=== PATIENT | female | born 1965 | race Caucasian/White ===

== ENCOUNTER 2021-04-08 16:32 | Outpatient (CLI) | payer OTHER, SELFPAY ==
--- NOTE | ~2021-04-08 | DEXA_ITS ---
Bone Density Report Name: Cammie Hamm Age: 56 Sex: Female Ethnicity: White Date of : 1965 Indication: osteopenia; height loss; hysterectomy; Referring Provider: Daquan, Steffany Study: Bone densitometry was performed. Exam Date: April 08, 2021 Accession number: [id number] Bone Density: Region BMD T-score Z-score Classification AP Spine (L1-L4) 0.895 -1.4 -0.1 Osteopenia Femoral Neck (Left) 0.709 -1.3 -0.1 Osteopenia Total Hip (Left) 0.863 -0.6 0.2 Normal Total Hip Bilateral Avg 0.881 -0.5 0.4 Normal Femoral Neck (Right) 0.770 -0.7 0.5 Normal Total Hip (Right) 0.898 -0.4 0.5 Normal World Health Organization criteria for BMD impression classify patients as: Normal (T-score at or above -1.0), Osteopenia (T-score between -1.0 and -2.5), or Osteoporosis (T-score at or below -2.5). 10-year Fracture Risk(1): Major Osteoporotic Fracture 6.7% Hip Fracture 0.4% Reported Risk Factors: [place] (), Neck BMD=0.709, BMI=23.7 (1) FRAX(R) Version 3.08. Fracture probability calculated for an untreated patient. Fracture probability may be lower if the patient has received treatment. Previous Exams: Region Exam Age BMD T-score BMD Change BMD Change Date g/cm2 vs Baseline vs Previous AP Spine(L1-L4) 04/08/2021 56 0.895 -1.4 -0.031(-3.4%)# -0.015(-1.6%)# 02/15/2018 52 0.910 -1.2 -0.016(-1.8%)# 0.021(2.3%)# 06/01/2013 48 0.889 -1.4 -0.037(-4.0%)# -0.037(-4.0%)02/19/2011 45 0.926 -1.1 Total Hip(Left) 04/08/2021 56 0.863 -0.6 -0.012(-1.4%)# -0.010(-1.2%)# 02/15/2018 52 0.874 -0.6 -0.002(-0.2%)# -0.002(-0.3%)# 06/01/2013 48 0.876 -0.5 0.001(0.1%)# 0.001(0.1%)# 02/19/2011 45 0.875 -0.5 Total Hip(Right) 04/08/2021 56 0.898 -0.4 0.027(3.1%)# 0.027(3.1%)# 02/15/2018 52 0.871 -0.6 -0.001(-0.1%)# -0.027(-3.0%)# 06/01/2013 48 0.897 -0.4 0.026(3.0%)# 0.026(3.0%)02/19/2011 45 0.871 -0.6 *Denotes significance at 95% confidence level, LSC for AP Spine = 0.022 g/cm2, LSC for Total Hip = 0.027 g/cm2 Clinical Information Provided by Patient: Has used the following medications: Vitamin D Has the following medical conditions: Hysterectomy Patient maximum height was 67 Drinks caffeinated beverages Onset of menses at age 12 Number of children 3 Impression: The patient has low bone mass, based on the Total Spine T-score. The patient has an estimated ten-yea
--- NOTE | ~2021-04-08 | MM_ITS ---
EXAMINATION: MM screening deena BI w sally HISTORY: Screening mammogram TECHNIQUE: Craniocaudal and mediolateral oblique 3-D tomosynthesis images were obtained and synthetic 2-D images were generated. CAD analysis was submitted and interpreted. COMPARISON: No prior mammogram is available for comparison at this institution. BREAST PARENCHYMAL COMPOSITION: The breasts are heterogeneously dense, which may obscure small masses . FINDINGS: Interval asymmetric densities are noted in the right breast. Diagnostic right mammogram and right breast ultrasound examination are recommended. There is no evidence of suspicious mass, calcification, or architectural distortion to suggest malign blue in the left breast. IMPRESSION: 1. Interval asymmetric densities in the right breast 2. Diagnostic right mammogram and right breast ultrasound examination are recommended BI-RADS Category 0: Incomplete: Needs additional imaging evaluation. Reviewed, dictated and finalized at location A. IMPRESSION: 1. Interval asymmetric densities in the right breast 2. Diagnostic right mammogram and right breast ultrasound examination are recom mended BI-RADS Category 0: Incomplete: Needs additional imaging evaluation.
== END 2021-04-08 16:33 | disposition home or self-care (01) ==
LOC: ANHIMG 16:36
PROVIDERS: PCP Family Medicine; Visit Provider Nurse Practitioner
DX: Z12.31 Encounter for screening mammogram for malignant neoplasm of breast (principal); Z78.0 Asymptomatic menopausal state; R92.8 Other abnormal and inconclusive findings on diagnostic imaging of breast; M85.89 Other specified disorders of bone density and structure, multiple sites
CPT/HCPCS: 77063; 77067; 77080

== ENCOUNTER 2021-07-03 11:16 | Outpatient (CLI) | payer OTHER, SELFPAY ==
--- NOTE | ~2021-07-03 | MMUS_ITS ---
EXAMINATION: MM diagnostic deena RT w sally, US breast RT complete HISTORY: Follow-up right breast asymmetry TECHNIQUE: Additional 3-D tomosynthesis images of the right breast were performed and synthetic 2-D i mages were generated. CAD analysis was submitted and interpreted. High resolution complete right meir st ultrasound was performed. COMPARISON: 06/01/2013 BREAST PARENCHYMAL COMPOSITION: Breast composed of scattered areas of fibroglandular density. FINDINGS: MAMMOGRAPHIC FINDINGS: There are no suspicious masses, calcifications or architectural distortion in the right breast to sug gest malignancy. There are focal asymmetry centrally in the right breast on CC view which are less ap parent with spot compression views. ULTRASOUND: Complete right breast ultrasound including all 4 quadrants and retroareolar region: There are multipl e cysts of the right breast at 12:00, 7:00 and a cluster of cysts at 10:00, 1 cm from the nipple. No suspicious masses to suggest malignancy. IMPRESSION: 1. No evidence for malignancy in the right breast. Benign findings. 2. Routine yearly screening mammogram and regular clinical breast examination are recommended. BI-RADS Category 2: Benign finding(s). Reviewed, dictated and finalized at location A. [facility] IMPRESSION: 1. No evidence for malignancy in the right breast. Benign findings. 2. Routine yearly screening mammogram and regular clinical breast examination a re recommended. BI-RADS Category 2: Benign finding(s).
== END 2021-07-03 11:17 | disposition home or self-care (01) ==
LOC: ANHIMG 11:18
PROVIDERS: PCP Family Medicine; Visit Provider Obstetrics & Gynecology Gynecology
DX: R92.8 Other abnormal and inconclusive findings on diagnostic imaging of breast (principal)
CPT/HCPCS: 76641; 77061; 77065; G0279

== ENCOUNTER 2023-07-26 03:15 | Day surgery (SDC) | payer BC, SELFPAY ==
[2023-06-29 14:02] VITALS: BMI 24.3
--- NOTE | 2023-07-23 08:37 | SUR.PREOP ---
Patient called regarding upcoming procedure. Reviewed preop instructions, appointment times, and procedure prep.
--- NOTE | 2023-07-23 14:40 | PM.HPGS ---
History of Present Illness History of Present Illness Consent: Risks, benefits, and alternatives have been discussed and questions answered. Patient agrees to proceed with procedure. Chief complaint: other fecal abnormalities Narrative: Cammie Hamm is a 58 year old female Referred for colon cancer screening due to having had a positive Cologuard test. Review of Systems Review of Systems: All systems reviewed & are unremarkable except as noted in HPI and below PMFSH Family History Family History Father Family history of lymphoma Mother Family history of malignant neoplasm of breast in first degree relative Social History Social History Smoking status: Never smoker Second hand tobacco smoke exposure: No Alcohol intake: never Substance use: never Substance use type: does not use Living arrangements: with family Spiritual care concerns: No Meds Home Medications and Allergies Home Medications Medication Instructions Recorded Confirmed Type magnesium 100 mg capsule 100 mg PO DAILY 06/29/23 06/29/23 History [id number] 200 mcg-vit K 100 1 cap PO DAILY 06/29/23 06/29/23 History mcg-lycop 500 [id number] capsule (Daily Multivitamin) omega-3 fatty acids 1,000 mg 1,000 mg PO DAILY 06/29/23 06/29/23 History capsule Allergies Allergy/AdvReac Type Severity Reaction Status Date / Time levothyroxine Allergy Rash Verified 07/26/23 07:41 POISON [place] Allergy Hives Uncoded 07/26/23 07:41 Exam Const: General: alert Orientation/consciousness: patient oriented x3 Resp: Auscultation: clear to auscultation bilaterally Cardio: Rhythm: regular rhythm GI: GI Palp: Yes Soft to palpation and No Tenderness to palpation present (GI) Neuro: General: patient oriented x3 Assessment and Plan Assessment and plan (1) Positive colorectal cancer screening using Cologuard test: Code(s): R19.5 - Other fecal abnormalities Status: Acute Assessment and Plan: Colonoscopy with possible biopsy or polypectomy or cautery or injection of substances.
[2023-07-26 07:43] VITALS: BP 127/70; PULSE 85; RESP 18; TEMP 36.3; O2SAT 100
[2023-07-26] MEDS: LACTATED RINGERS 1,000 ML 150 ML IV CONT (07:51)
--- NOTE | 2023-07-26 08:11 | P.PNAN_ITS ---
Anes - Initial Pre Proc Eval Procedure: Operation Date: 07/26/23 09:00 Proposed Procedures p Colonoscopy - Santino Whaley MD Date/Time: 07/26/23 08:11 Surgeon: Santino Whaley MD Pre Op Diagnosis: other fecal abnormalities Patient Data Age: 58 Gender: F Height: 1.7 m Weight: 69.4 kg Last Vital Signs Temp 97.4 F L 07/26/23 07:43 Pulse 85 07/26/23 07:43 Resp 18 07/26/23 07:43 BP 127/70 07/26/23 07:43 Pulse Ox 100 07/26/23 07:43 O2 Del Method Room Air 07/26/23 07:43 Allergies Allergy/AdvReac Type Severity Reaction Status Date / Time levothyroxine Allergy Rash Verified 07/26/23 07:41 POISON [place] Allergy Hives Uncoded 07/26/23 07:41 Home Medications Medication Instructions Recorded Confirmed Type magnesium 100 mg capsule 100 mg PO DAILY 06/29/23 06/29/23 History [id number] 200 mcg-vit K 100 1 cap PO DAILY 06/29/23 06/29/23 History mcg-lycop 500 [id number] capsule (Daily Multivitamin) omega-3 fatty acids 1,000 mg 1,000 mg PO DAILY 06/29/23 06/29/23 History capsule Patient hx anesthesia problems: none Family hx anesthesia problems: none Results Review: All pre-operative results and documents have been reviewed as part of the pre- operative evaluation. [facility] Family History Family History Father Family history of lymphoma Mother Family history of malignant neoplasm of breast in first degree relative Social History Social History Smoking status: Never smoker Second hand tobacco smoke exposure: No Alcohol intake: never Substance use: never Substance use type: does not use Living arrangements: with family Spiritual care concerns: No Anes - Eval Final PreProcedure Day of Procedure 07/26/23 08:11 Patient weight: normal Heart: regular rate and rhythm Lungs: clear to auscultation Airway: Mallampati scale class II Neurological: alert and oriented Last oral intake: >/= 8 hours ASA classification: II Emergent: no Anesthetic plan: proceed Anesthesia type and monitoring: general GIVS and standard monitoring Results Review: All pre-operative results and documents have been reviewed as part of the pre- operative evaluation. Informed Consent: The patient's anesthetic plan and its attendant risks and benefits were discussed with the patient/family/POA. Questions were solicited and answers provided to the satisfaction of the patient/family/POA.
[2023-07-26 08:42] VITALS: BP 109/63; PULSE 57; RESP 21; O2SAT 98
[2023-07-26 08:46] VITALS: BP 109/63; PULSE 77; RESP 20; O2SAT 98
[2023-07-26 08:53] VITALS: BP 114/74; PULSE 79; RESP 12; O2SAT 100
== END 2023-07-26 09:10 | disposition home or self-care (01) ==
PROVIDERS: Referring Provider Obstetrics & Gynecology Gynecology; Visit Provider Internal Medicine Gastroenterology
PROC: 0DJD8ZZ Inspection of Lower Intestinal Tract, Via Natural or Artificial Opening Endoscopic (ICD-10-PCS; CPT 45378; principal; 2023-07-26 09:00)
DX: R19.5 Other fecal abnormalities (principal); K62.1 Rectal polyp; Z80.7 Family history of other malignant neoplasms of lymphoid, hematopoietic and related tissues; Z80.3 Family history of malignant neoplasm of breast
CPT/HCPCS: 45380; 88305; J2704; J7120